=== PATIENT | male | born 1980 | race Caucasian/White ===

== ENCOUNTER 2017-02-23 07:52 | Inpatient (IN) | payer OTHER ==
[2017-02-23] VITALS (9 sets, daily range): BP systolic 116–132; BP diastolic 71–85
[~2017-02-23] VITALS: Ht 182.9 cm; Wt 88.0 kg
--- NOTE | ~2017-02-23 | S ---
[facility] [place] [address] SURGICAL PATH RPT PROCEDURE Name: BRYSON MORRELL Room #: 438-P ADM IN M.R.#: [id number] Admission: 02/23/17 Date of : 82 Discharge: Report #: [id number] Path Case #: [id number] PATHOLOGY REPORT COLLECTION DATE: 02/23/2017 RECEIVED DATE: 02/23/2017 SUBMITTING PHYS: Dr. Florencio Bishop, DO OTHER PHYS: SPECIMEN(S) RECEIVED: A.Appendix * * * * * * * * * * * * FINAL DIAGNOSIS: Appendix, appendectomy: - Acute appendicitis and periappendicitis with perforation. (SATHISHM:; 02/24/2017) PATHOLOGIST: John Block M.D. REPORT ELECTRONICALLY SIGNED BY: John Block M.D. DATE/TIME: 02/24/2017 14:27 * * * * * * * * * * * * GROSS PATHOLOGY: Received in formalin labeled "Bryson Morrell and appendix," is a disrupted appendix measuring 7.0 cm in length cm in length and up to 1.7 cm in diameter with minimal amount of attached mesoappendix. The proximal resection margin is closed by a linear staple line 2.5 cm in length with an average 0.1 cm width (inked black). The disruption (infarct) is 0.4 cm from the stapled margin and is inked green. The serosal surface is irregular hemorrhagic. Sectioning reveals 0.5 cm in greatest dimension lumen filled with friable hemorrhagic material and a wall that measure up to 0.3 cm thick. Bell [employer] sections are submitted as follows: A1 proximal resection margin inked black to possible perforation inked green, longitudinal sections A2 cross section and a longitudinal section of appendix (SWS; 02/23/2017) CLINICAL HISTORY: Appendicitis with a perforated appendix INITIAL CPT CODE(S): A; 84106 Professional services performed by [facility] at [facility] [address] [place] [address] SURGICAL PATH RPT PROCEDURE Name: BRYSON MORRELL Room #: 438-P ADM IN M.R.#: [id number] Admission: 02/23/17 Date of : 82 Discharge: Report #: [id number] Path Case #: [id number] , [place] [address] Technical services performed by [facility] at [address] [place] [address], [facility] [address] [address]. [place] [address] PHONE: [phone] DIRECTOR: Ayad Lopez M.D. * * * END OF REPORT * * *
[2017-02-23 08:12] LABS: HEMATOCRIT 46.8 % (42.0-52.0); HEMOGLOBIN 16.4 gm/dL (14.0-18.0); MCH 31.9 pg (26.0-34.0); MCHC 35.1 g/dL (28.0-37.0); MCV 90.9 fL (80.0-100.0); RBC 5.14 mil/uL (4.50-6.00); RDW 12.3 % (10.5-14.5); WBC 16.4 thou/uL (4.0-11.0)
[2017-02-23 08:18] LABS: CALCIUM 9.2 mg/dL (8.5-10.1); CREATININE 1.1 mg/dL (0.7-1.3); POTASSIUM 3.8 mmol/L (3.5-5.1)
[2017-02-23 08:24] LABS: ALBUMIN 3.8 g/dL (3.4-5.0); TOTAL BILIRUBIN 0.5 mg/dL (<0.1-1.0)
[2017-02-23 11:46] LABS: URINE BILIRUBIN NEGATIVE (Negative); URINE BLOOD NEGATIVE (Negative); URINE CLARITY CLEAR; URINE COLOR YELLOW; URINE GLUCOSE-RANDOM* NEGATIVE (Negative); URINE KETONES NEGATIVE (Negative); URINE LEUKOCYTES-REFLEX NEGATIVE (Negative); URINE NITRITE-REFLEX NEGATIVE (Negative); URINE PROTEIN (DIPSTICK) NEGATIVE (Negative); URINE SPECIFIC GRAVITY <= 1.005 (1.005-1.035); URINE UROBILINOGEN 0.2 E.U./dl (0.2-1.0)
[2017-02-24 04:30] VITALS: BP 119/80
[2017-02-24 05:36] LABS: HEMATOCRIT 44.2 % (42.0-52.0); HEMOGLOBIN 15.3 gm/dL (14.0-18.0); MCH 31.8 pg (26.0-34.0); MCHC 34.5 g/dL (28.0-37.0); MCV 92.1 fL (80.0-100.0); RBC 4.8 mil/uL (4.50-6.00); RDW 12.6 % (10.5-14.5); WBC 19.5 thou/uL (4.0-11.0)
[2017-02-24 05:52] LABS: CALCIUM 9.1 mg/dL (8.5-10.1); CREATININE 1.1 mg/dL (0.7-1.3); POTASSIUM 3.8 mmol/L (3.5-5.1)
[2017-02-24 07:20] VITALS: BP 118/81
[2017-02-24 16:30] VITALS: BP 120/81
[2017-02-24 19:44] VITALS: BP 122/44
[2017-02-25 03:47] VITALS: BP 122/80
[2017-02-25 05:48] LABS: HEMATOCRIT 40.2 % (42.0-52.0); HEMOGLOBIN 14.1 gm/dL (14.0-18.0); MCH 32.2 pg (26.0-34.0); MCHC 35.1 g/dL (28.0-37.0); MCV 91.9 fL (80.0-100.0); RBC 4.37 mil/uL (4.50-6.00); RDW 12.7 % (10.5-14.5); WBC 12.6 thou/uL (4.0-11.0)
[2017-02-25 06:01] LABS: CALCIUM 8.8 mg/dL (8.5-10.1); CREATININE 1.2 mg/dL (0.7-1.3); POTASSIUM 3.9 mmol/L (3.5-5.1)
[2017-02-25 09:18] VITALS: BP 123/82
[2017-02-25 16:16] VITALS: BP 126/86
[2017-02-25 19:34] VITALS: BP 121/82
[2017-02-26 04:45] VITALS: BP 130/87
[2017-02-26 06:36] LABS: HEMATOCRIT 41.5 % (42.0-52.0); HEMOGLOBIN 14.3 gm/dL (14.0-18.0); MCH 31.9 pg (26.0-34.0); MCHC 34.4 g/dL (28.0-37.0); MCV 92.7 fL (80.0-100.0); RBC 4.48 mil/uL (4.50-6.00); RDW 12.5 % (10.5-14.5); WBC 11.7 thou/uL (4.0-11.0)
[2017-02-26 06:49] LABS: CALCIUM 9.2 mg/dL (8.5-10.1); CREATININE 1.2 mg/dL (0.7-1.3); POTASSIUM 3.6 mmol/L (3.5-5.1)
[2017-02-26 07:09] VITALS: BP 125/79
[2017-02-26 10:30] VITALS: BP 125/79
== END 2017-02-26 11:13 | disposition home or self-care (01) | DRG 340 ==
LOC: ER 07:52 → 4S 09:08 → EROBS 09:08 → EDBD 09:08 → 4S 10:09 → ENTRNSPT 15:33 → EDTRNSPTSTS 15:40 → 4S 02-26 11:13
PROVIDERS: Emergency Medicine; Surgery
PROC: 0DTJ4ZZ Resection of Appendix, Percutaneous Endoscopic Approach (ICD-10-PCS; principal; 2017-02-23)
DX: K35.2 Acute appendicitis with generalized peritonitis (principal); F17.210 Nicotine dependence, cigarettes, uncomplicated
CPT/HCPCS: 10195; 50010; 50101; 50249; 50331; 50378; 50411; 50555; 50558; 50739; 50740; 50962; 51489; 51975; 52265; 53307; 53310; 54022; 54118; 56525; 56526; 62110; 62900; 70005